=== PATIENT | female | born 1965 | race Caucasian/White ===

== ENCOUNTER 2022-09-27 13:01 | Outpatient (REF) | payer BC, SELFPAY ==
--- NOTE | ~2022-09-27 | XR_ITS ---
EXAMINATION: XR LUMBOSACRAL SPINE CLINICAL INFORMATION: Arthrodesis status COMPARISON: None available. TECHNIQUE: Two views of the lumbosacral spine. FINDINGS: There is a left-sided sudhir in the thoracic and upper lumbar spine ending at L3. There is posterior fusion hardware with rods and bilateral transpedicular screws from L3 to S1. There are intervertebral body disc interspaces at L3-L4 L4-L5 and L5-S1. No bony ankylosis is seen at these levels. There is mild curvature of the lower thoracic spine to the right. There is degenerative spondylosis disease at L1-L2 and L2-L3. No fracture or dislocation. XR/XR lumbar spine 2-3V IMPRESSION: Fusion hardware from L3 to S1.
== END 2022-09-27 13:02 | disposition home or self-care (01) ==
LOC: HO.HOSX 13:01
PROVIDERS: Visit Provider Neurological Surgery
DX: M53.3 Sacrococcygeal disorders, not elsewhere classified (principal); M54.9 Dorsalgia, unspecified; Z98.1 Arthrodesis status
CPT/HCPCS: 72100

== ENCOUNTER 2023-12-04 14:04 | Outpatient (AMB) | payer OTHER, SELFPAY ==
--- NOTE | 2023-12-04 14:12 | A.SPINEOV_ITS ---
Intake Visit Reasons: F/u after Pain management Intake Note: Ms. Cueto is here to f/u after pain management. Anesthesiologist Physician Required: No Allergies No Known Allergies Allergy (Verified 12/04/23 14:14) Assessment & Plan Assessment & Plan (1) Status post lumbar and lumbosacral fusion by anterior technique: Code(s): Z98.1 - Arthrodesis status Category: Surgical (2) Failed back syndrome: Code(s): M96.1 - Postlaminectomy syndrome, not elsewhere classified Category: Medical Plan Dear colleague, On 12/03/2023, I saw for follow-up Keiko Cueto. She is status post L3-S1 lumbar fusion posterior instrumentation in March 2022. She never reported any improvement in her back pain. She continues to suffer from severe back pain radiating down both legs with the left side is more affected than the right side. She is unable to walk long more than 150 ft. She can not stand for more than 5 minutes were sit for prolonged period of times. She has not been able to return to a job at [employer]. She underwent multiple injections, including an SI joint injection in his spinal cord stimulator trial with no significant effect. 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 A recent x-ray the to evaluate the SI joints show lucency around the bilateral S1 pedicle screw. On exam, she stands and walks in a flexed position and holds her left leg up due to pain. I would like to order a CT of the lumbar spine to assess for pseudoarthrosis although the patient is aware that the fact she did not respond at all due to the surgery, a revision surgery will most likely not make a difference in her symptomatology. I will schedule the CT for March, the 2 year thania from her surgery and will see her that same day in the office. She needs to apply for social security disability with a diagnosis of failed back syndrome. I spent 30 minutes in his consult to review imaging and to discuss plan of care. Oscar Muñoz MD, PhD Spine Fellowship Trained Neurosurgeon Director, [facility] Orders: Orders CT lumbar spine wo IV con Today M96.1 - Postlaminectomy syndrome, not elsewhere classified, Z98.1 - Arthrodesis status Coding Level of Care Code Est Pt Level 4 (36125) Diagnoses Status post lumbar and lumbosacral fusion by anterior technique Z98.1 Failed back syndrome M96.1
== END 2023-12-04 15:02 | disposition home or self-care (01) ==
PROVIDERS: PCP Family Medicine; Visit Provider Neurological Surgery
DX: Z98.1 Arthrodesis status (principal); M96.1 Postlaminectomy syndrome, not elsewhere classified
CPT/HCPCS: 99214

== ENCOUNTER → 2023-12-04 14:04 | Outpatient (BNVA) | payer OTHER, SELFPAY | PROVIDERS: PCP Family Medicine; Visit Provider Neurological Surgery ==

== ENCOUNTER 2024-04-07 12:58 | Outpatient (REF) | payer MEDICAID, SELFPAY ==
--- NOTE | ~2024-04-07 | CT_ITS ---
EXAMINATION: CT LUMBAR SPINE WITHOUT CONTRAST CLINICAL INFORMATION: Postlaminectomy syndrome, not elsewhere classified COMPARISON: Lumbar spine radiograph 09/27/2022 TECHNIQUE: Helical CT images were acquired through the lumbar spine without the use of intravenous contrast. Axial reconstructions were reviewed along with sagittal and coronal MPRs. This CT examination was performed using dose optimization techniques as appropriate, variously including the following: * Automated exposure control * Adjustment of mA and/or kV according to patient size (this includes techniques or standardized protocols for targeted exams where dose is matched to indication/reason for exam; i.e. extremities or head) Use of iterative reconstruction technique DLP: 1075 mGy-cm FINDINGS: Mild left convexity scoliosis of the lumbar spine. Sagittal alignment is maintained. No acute fracture. Stable and intact spinal fusion hardware including bipedicular L3-S1 screws and fusion rods with associated intervertebral disc spacers, and a left-sided upper lumbar/thoracic stabilization sudhir extending superiorly out of [id number]. The remaining intervertebral disc spaces are maintained. Spondylosis with osteophytosis along the thoracolumbar fusion sudhir/L3. L3-S1 lumbar spondylosis with subchondral sclerosis, osteophytosis and facet arthropathy. Moderate bilateral L5-S1 neural foraminal stenosis. The bony canal is well maintained. Bilateral sacroiliac joints are maintained. The paraspinal soft tissues are unremarkable. CT/CT lumbar spine wo IV con IMPRESSION: 1. Stable and intact spinal fusion hardware as described above. 2. Moderate multilevel lumbar spondylosis as described above. 3. No acute fracture or subluxation. Electronically signed by: Delphine Farley DO 04/07/2024 04:40 PM [facility]
== END 2024-04-07 12:59 | disposition home or self-care (01) ==
LOC: HO.CT 12:58
PROVIDERS: PCP Family Medicine; Visit Provider Neurological Surgery
DX: M96.1 Postlaminectomy syndrome, not elsewhere classified (principal); Z98.1 Arthrodesis status
CPT/HCPCS: 72131

== ENCOUNTER 2024-04-30 13:41 | Outpatient (AMB) | payer OTHER, SELFPAY ==
--- NOTE | 2024-04-30 14:32 | HO.SPINEOV ---
Intake Visit Reasons: ct follow up Intake Note: Ms. Cueto is here today to f/u on Ct results. Auto Camp Attendant Required: No Allergies No Known Allergies Allergy (Verified 12/04/23 14:14) Assessment & Plan Assessment & Plan (1) Status post lumbar and lumbosacral fusion by anterior technique: Code(s): Z98.1 - Arthrodesis status Category: Surgical (2) Failed back syndrome: Code(s): M96.1 - Postlaminectomy syndrome, not elsewhere classified Category: Medical Plan Dear colleague, On 04/30/2024, I saw for follow-up Keiko Cueto. As you know, she had a scoliosis correction with a Dickerson sudhir. She presented to me with a lumbar degenerative scoliosis for which I performed an L4-S1 lumbar fusion but unfortunately she did not respond to the surgery. She suffering from failed back syndrome. She continues to have severe low back pain and left hip groin and leg pain. She walks in a flexed position with a limp of her left leg. She can not walk for any significant length of time but I also can not sit for prolonged periods of times. She is definitely not able to lift anything more than 10 lb. Preoperatively, she already tried all forms of conservative treatment, including a spinal cord stimulator trial which was negative. A left SI joint injection provided no relief of the pain either. A CT scan of the lumbar spine shows intact hardware. There is no role for further surgery. She applied for disability which was denied to my surprise. She is totally disabled for work due to her spine pathology for which there is no therapeutic solution. She will visit me on a p.r.n. basis. I when he minutes in his consult to review imaging and to discussing her current clinical situation. Oscar Muñoz MD, PhD Spine Fellowship Trained Neurosurgeon Director, [facility] [place] [facility] Coding Level of Care Code Est Pt Level 3 (58248) Diagnoses Status post lumbar and lumbosacral fusion by anterior technique Z98.1 Failed back syndrome M96.1
--- OUTSIDE RECORDS SUMMARY | 2024-05-06 19:38 | XMS_ITS | Data Portability ---
Author Organization [facility] [employer], svmg_admin Address [address] [place] [id number] Care Team Providers Care Ecclesiastical Worker Name Role Phone KAT CHAU Referring Provider AMADOR GIL Primary Care Provider [phone] KAT CHAU Pain Management Assessment Encounter Date Assessment Date Assessment LastModified by Organization Details LastModified Time 12/18/2023 12/18/[address] Muñoz 12/03/23 for review. Not available 12/18/2023 14:29:55 Plan of Treatment Reminders Order Date Submit Date Provider Last Modified By Organization Details Last Modified Time Details Appointments None recorded. Lab None recorded. Referral None recorded. Procedures epidural steroid injection, caudal (PROC) 2023 024 [email or web address] Not available 4 09:23:28 Surgeries None recorded. Imaging None recorded. Medication Orders pregabalin 75 mg capsule 2023 024 [id number], [address], [place], [id number], 4 14:00:22 tramadol 50 mg tablet 2023 024 [email or web address] [id number], [address], [place], [phone], 4 13:58:56 Patient TargetsNo targets recorded. Patient Instructions Encounter Date Encounter Id Patient Instructions Last Modified By Organization Details Last Modified Time 07/23/2023 [id number] A healthy lifestyle: care instructions Not available 07/23/2023 17:07:28 back care and preventing injuries: care instructions [email or web address] Not available 07/23/2023 17:07:28 getting back to normal after low back pain: care instructions [email or web address] Not available 07/23/2023 17:07:28 learning about relief for back pain [email or web address] Not available 07/23/2023 17:07:28 caudal lanny information [email or web address] Not available 07/23/2023 17:07:28 09/24/2023 [id number] A healthy lifestyle: care instructions Not available 09/24/2023 14:08:40 back care and preventing injuries: care instructions [email or web address] Not available 09/24/2023 14:08:40 getting back to normal after low back pain: care instructions [email or web address] Not available 09/24/2023 14:08:40 learning about relief for back pain [email or web address] Not available 09/24/2023 14:08:40 caudal lanny information [email or web address] Not available 09/24/2023 14:08:40 10/11/2023 [id number] A healthy lifestyle: care instructions [email or web address] Not available 10/11/2023 14:02:16 back care and preventing injuries: care instructions [email or web address] Not available 10/11/2023 14:02:16 getting back to normal after low back pain: care instructions [email or web address] Not available 10/11/2023 14:02:16 learning about relief for back pain Not available 10/11/2023 14:02:16 caudal lanny information [email or web address] Not available 10/11/2023 14:02:16 11/13/2023 [id number] A healthy lifestyle: care instructions Not available 11/13/2023 13:24:53 back care and preventing injuries: care instructions [email or web address] Not available 11/13/2023 13:24:54 getting back to normal after low back pain: care instructions [email or web address] Not available 11/13/2023 13:24:54 learning about relief for back pain [email or web address] Not available 11/13/2023 13:24:53 caudal lanny information [email or web address] Not available 11/13/2023 13:24:53 12/18/2023 [id number] A healthy lifestyle: care instructions Not available 12/18/2023 14:30:59 back care and preventing injuries: care instructions [email or web address] Not available 12/18/2023 14:30:59 getting back to normal after low back pain: care instructions [email or web address] Not available 12/18/2023 14:30:59 learning about relief for back pain [email or web address] Not available 12/18/2023 14:30:59 caudal lanny information [email or web address] Not available 12/18/2023 14:30:59 Reason for Referral None Reported. Results Created Date Observation Date Name Description Value Unit Range Abnormal Flag Note LastModifiedBy Organization Detail LastModifiedTime 09/24/19 24 09/24/2023 URINE abnormal status negative Not Available [facility] [address] [place] [address], [address], 09/28/2023 09:48:51 09/24/19 24 09/24/2023 URINE abnormal status positive Not Available [facility] [address] [place] [address], [address], 09/28/2023 09:48:51 09/24/19 24 09/28/2023 RESUL TS opiates class Negati ve NG/mL 300 negative Not Available [facility] [address] [place] [address], [address], 09/28/2023 09:48:50 09/24/19 24 09/28/2023 RESUL TS oxycodone Negati ve NG/mL 100 negative Not Available [facility] [address] [place] [address], [address], 09/28/2023 09:48:50 09/24/19 24 09/28/2023 RESUL TS methadone Negati ve NG/mL 300 negative Not Available [facility] [address] [place] [address], [address], 09/28/2023 09:48:50 09/24/19 24 09/28/2023 RESUL TS benzodiazepi matt class Negati ve NG/mL 200 negative Not Available [facility] [address] [place] [address], [address], 09/28/2023 09:48:50 09/24/19 24 09/28/2023 RESUL TS cocaine metabolite (BE) Negati ve NG/mL 150 negative Not Available [facility] [address] [place] [address], [address], 09/28/2023 09:48:50 09/24/19 24 09/28/2023 RESUL TS cthc Negati ve NG/mL 50 negative Not Available [facility] [address] [place] [address], [address], 09/28/2023 09:48:50 09/24/19 24 09/28/2023 RESUL TS amphetamines /stimulants class Negati ve NG/mL 500 negative Not Available [facility] [address] [place] [address], [address], 09/28/2023 09:48:50 09/24/19 24 09/28/2023 RESUL TS barbiturates class Negati ve NG/mL 200 negative Not Available [facility] [address] [place] [address], [address], 09/28/2023 09:48:50 09/24/19 24 09/28/2023 RESUL TS pregabalin 66752 NG/mL 500 positive Not Available [facility] [address] [place] [address], [address], 09/28/2023 09:48:50 09/24/19 24 09/28/2023 RESUL TS nicotine metabolite <100 NG/mL 100 negative Not Available [facility] [address] [place] [address], [address], 09/28/2023 09:48:50 09/24/19 24 09/28/2023 RESUL TS fluoxetine 1558 NG/mL 50 positive Not Available [facility] [address] [place] [address], [address], 09/28/2023 09:48:50 09/24/19 24 09/28/2023 RESUL TS creatinine 39.32 mg/dL > 20 mg/dL normal Not Available [facility] [address] [place] [address], [address], 09/28/2023 09:48:50 09/24/19 24 09/28/2023 RESUL TS creatinine 39.32 mg/dL > 20 mg/dL normal Not Available [facility] [address] [place] [address], [address], 09/28/2023 09:48:50 09/24/19 24 09/28/2023 RESUL TS creatinine 39.32 mg/dL > 20 mg/dL normal Not Available [facility] [address] [place] [address], [address], 09/28/2023 09:48:50 09/24/19 24 09/28/2023 RESUL TS oxidants ug/mL < 200 ug/mL normal NOT DETEC AMMY NOT DETEC AMMY NOT DETEC AMMY Not Available [facility] [address] [place] [address], [address], 09/28/2023 09:48:50 09/24/19 24 09/28/2023 RESUL TS pH 6.35 4.50-9 .50 normal Not Available [facility] [address] [place] [address], [address], 09/28/2023 09:48:50 09/24/19 24 09/28/2023 RESUL TS pH 6.35 4.50-9 .50 normal Not Available [facility] [address] [place] [address], [address], 09/28/2023 09:48:50 09/24/19 24 09/28/2023 RESUL TS pH 6.35 4.50-9 .50 normal Not Available [facility] [address] [place] [address], [address], 09/28/2023 09:48:50 09/24/19 24 09/28/2023 RESUL TS specific gravity 1.004 1.003- 1.050 normal Not Available [facility] [address] [place] [address], [address], 09/28/2023 09:48:50 09/24/19 24 09/28/2023 RESUL TS specific gravity 1.004 1.003- 1.050 normal Not Available [facility] [address] , [place], [address], 09/28/2023 09:48:50 09/24/19 24 09/28/2023 RESUL TS specific gravity 1.004 1.003- 1.050 normal Not Available [facility] [address], [place], [address], 09/28/2023 09:48:50 Result Notes None recorded. Problems Name Problem SNOMED Code Status Onset Date Resolution Date Notes Provider Name and Address Organization Details Recorded Time Low back pain 433925613 Active 023 Pippa teran [facility] 05/03/2023 08:32:06 Notes:Some problems listed i n Document: #[id number] could not be added to this patient's chart. Please review this document and add these problems to the patient's chart manually as needed. Problem Notes None recorded. Procedures Surgical History Date Name Laterality Status Provider Name and Address Organization Details Recorded Time 2023 Caudal Epidural Steroid Injection completed Kat Chau MD [address] [place], [address], [facility] 4 15:44:47 2022 Special Procedure completed Kat Chau MD [address] [place] [address], [phone], [facility] 3 11:26:42 2022 Lumbar Transforaminal Epidural completed Kat Chau MD [address] [place] [address], [phone], [facility] 3 12:36:04 2022 Sacroiliac Joint Injection completed Nori Chau MD [address] [place] [address], [phone], [facility] 3 11:09:46 2021 lumbar spinal fusion completed Pippa Navas [facility] 3 08:33:25 2020 colonoscopy completed Lucas Gutierrez [facility] 3 14:51:06 2020 esophagogastroduodenoscopy completed Garthjordi Gutierrez [facility] 3 14:51:45 Spine Surgery completed Lucas Gutierrez [facility] 3 14:53:00 Tonsillectomy completed Lucas Gutierrez [facility] 3 14:53:12 Imaging Results None recorded. Procedure Notes None recorded. Medical Equipment None Reported. Allergies Allergen ID Allergen Name Allergen Category Reaction Reaction Severity Criticality Documentation Date Start Date Code Code System Note Provider Name and Address Organization Details Recorded Time [id number] chlorthal idone medicatio n other Not available Not available 09/27/2022 5069 RxNorm Elect rolyt e Distu rbanc e Lucas Gutierrez [facility] 3 15:00:35 Medications Name Sig Start Date Stop Date Status Note LastModified by Organization Details LastModified Time Prescript ion - New active Zynex- Prescrip tion & Letter of Medical Necessit y 01/16/20 24 Not Available Not Available Not Available methocarb humberto 500 mg tablet 10/10 completed Not Available Not Available Not Available prednison e 10 mg tablet 07/23 completed Not Available Not Available Not Available nicotine 14 mg/24 hr daily transderm al patch APPLY 1 PATCH TOPICALL Y TO THE SKIN 1 TIME EACH DAY AT THE SAME TIME 11/12 completed Not Available Not Available Not Available meloxicam 15 mg tablet 1 tab at bed time 12/17 completed Not Available Not Available Not Available omeprazol e 40 mg capsule,d elayed release Take 1 capsule every day by oral route as directed . active Not Available Not Available No t Available tramadol 50 mg tablet TAKE 1 TABLET BY MOUTH EVERY 12 HOURS 12/17 completed Not Available Not Available Not Available hydromorp pearl 2 mg tablet TAKE 1 TO 2 TABLETS BY MOUTH EVERY 4 HOURS NEEDED FOR PAIN 11/02 completed Not Available Not Available Not Available cephalexi n 500 mg capsule Take 1 capsule twice a day by oral route as directed for 10 days. 05/03 completed Not Available Not Available Not Available lisinopri l 10 mg tablet Take 1 tablet every day by oral route. active Not Available Not Available No t Available fluoxetin e 10 mg capsule TAKE 1 CAPSULE BY MOUTH EVERY MORNING FOR 7 DAYS. THEN INCREASE TO TAKE 2 CAPSULE BY MOUTH EVERY MORNING 11/12 completed Not Available Not Available Not Available gabapenti n 100 mg capsule TAKE 1 CAPSULE BY MOUTH EVERY NIGHT AT BEDTIME. INCREASE TO 2 TIMES DAILY IF NO SIDE EFFECTS 11/02 completed Not Available Not Available Not Available ibuprofen 600 mg tablet Take 1 tablet twice a day by oral route as needed. 11/02 completed Not Available Not Available Not Available fluoxetin e 20 mg capsule 3 tab daily active Not Available Not Available No t Available amoxicill in 875 mg-potass ium clavulana te 125 mg tablet TAKE 1 TABLET BY MOUTH TWICE DAILY FOR 10 DAYS 11/02 completed Not Available Not Available Not Available bupropion HCl XL 150 mg 24 hr tablet, extended release active Not Available Not Available Not Available Spiriva with HandiH[employer] r 18 mcg and inhalatio n capsules Place two puffs (1 capsule total) into inhaler and inhale 1 (one) time each day 11/12 completed Not Available Not Available Not Available duloxetin e 20 mg capsule,d elayed release 07/23 completed Not Available Not Available Not Available duloxetin e 30 mg capsule,d elayed release 07/23 completed Not Available Not Available Not Available duloxetin e 60 mg capsule,d elayed release Take 1 capsule every day by oral route. 07/23 completed Not Available Not Available Not Available pregabali n 75 mg capsule TAKE 1 CAPSULE BY MOUTH TWICE DAILY 10/10 completed Not Available Not Available Not Available Breztri Aerospher e 160 mcg-9mcg- 4.8mcg/ac tuation HFA aerosol inhaler active Not Available Not Available Not Available Vitals Date Recorded Body height Body mass index (BMI) Body weight Heart rate Oxygen saturation Oxygen saturation in Arterial blood by Pulse oximetry Systolic blood pressure Diastolic blood pressure Provider Name and Address Organization Details Last Updated DateTime 167.64 cm 33.9 kg/m2 42667.4 g 89 /min 96 % 96 % 126 mm[Hg] 76 mm[Hg] Melita Rivera [facility] 4 16:26:28 Date Recorded Body height Body mass index (BMI) Body weight Oxygen saturation Oxygen saturation in Arterial blood by Pulse oximetry Heart rate Systolic blood pressure Diastolic blood pressure Provider Name and Address Organization Details Last Updated DateTime 4 167.64 cm 33.9 kg/m2 98775.4 g 98 % 98 % 86 /min 126 mm[Hg] 75 mm[Hg] Roseanne Real [facility]. 4 13:40:27 Date Recorded Body height Oxygen saturation Oxygen saturation in Arterial blood by Pulse oximetry Heart rate Systolic blood pressure Diastolic blood pressure Provider Name and Address Organization Details Last Updated DateTime 4 167.64 cm 96 % 96 % 83 /min 147 mm[Hg] 93 mm[Hg] Jovana Copiah [facility]. 4 13:01:03 Date Recorded Body height Body mass index (BMI) Body weight Oxygen saturation Oxygen saturation in Arterial blood by Pulse oximetry Respiratory rate Heart rate Systolic blood pressure Diastolic blood pressure Provider Name and Address Organization Details Last Updated DateTime 4 167.64 cm 33.9 kg/m2 78852.4 g 96 % 96 % 16 /min 83 /min 128 mm[Hg] 80 mm[Hg] Clementina Ayers [facility]. 4 12:30:20 Date Recorded Body height Body mass index (BMI) Body weight Heart rate Oxygen saturation Oxygen saturation in Arterial blood by Pulse oximetry Systolic blood pressure Diastolic blood pressure Provider Name and Address Organization Details Last Updated DateTime 4 167.64 cm 33.9 kg/m2 16451.4 g 89 /min 95 % 95 % 142 mm[Hg] 84 mm[Hg] Roseanne Real [facility] 4 14:03:04 Social History Question Answer Notes LastModified by Organizat ion Details LastModified Time Tobacco Smoking Status Former Smoker Lucas teran [facility] 09/27/2022 14:53:53 Do You Have An Advance Directive? No [email or web address] Information not available 05/03/2023 What Is Your Level Of Alcohol Consumption? Occasional Information not available 11/02/2022 Are You Blind Or Do You Have Difficulty Seeing? No [email or web address] Information not available 05/03/2023 What Is Your Level Of Caffeine Consumption? Occasional Information not available 11/02/2022 Are You Currently Employed? No [email or web address] Information not available 05/03/2023 Are You Deaf Or Do You Have Serious Difficulty Hearing? No [email or web address] Information not available 05/03/2023 What Type Of Diet Are You Following? REGULAR Information not available 11/02/2022 Do You Or Have You Ever Used E-cigarettes Or Vape? Never Used Electronic Cigarettes Information not available 11/02/2022 When Did You Quit Smoking? 16+yearssincel prieto 1979 [email or web address] Information not available 09/27/2022 Urinary Incontinence Assessment Performed? No [email or web address] Information not available 05/03/2023 What Was The Date Of Your Most Recent Tobacco Screening? 12/18/2023 [email or web address] Information not available 12/18/2023 Have You Ever Been Counseled For Unhealthy Alcohol Use? No Information not available 12/11/2022 What Is Your Relationship Status? Single Information not available 11/02/2022 Do You Feel Stressed (tense, Restless, Nervous, Or Anxious, Or Unable To Sleep At Night)? [id number] Information not available 11/02/2022 Do You Use Any Illicit Or Recreational Drugs? No Information not available 12/11/2022 Has Tobacco Cessation Counseling Been Provided? No [email or web address] Information not available 05/03/2023 Do You Or Have You Ever Used Any Other Forms Of Tobacco Or Nicotine? Yes Information not available 11/02/2022 Sex: Unknown Functional Status Question Answer Note LastModified by Organizat ion Details LastModified Time Are you able to care for yourself? Yes [email or web address] Information not available 05/03/2023 What is your exercise level? Occasional Information not available 11/02/2022 Mental Status None recorded. Family History Relationship Description Onset Age of this Age Resolved Age Notes LastModified by Organization Details LastModified Time Father Depressive disorder [email or web address] Not available 07/2022 14:54:53 Father Disorder of lung [email or web address] Not available 07/2022 14:55:46 Sister Depressive disorder [email or web address] Not available 07/2022 14:54:53 Sister Anxiety [email or web address] Not availab le 09/27/2022 14:56:02 Son Inflammatory bowel disease [email or web address] Not available 07/2022 14:55:10 Son Steatosis of liver [email or web address] Not available 07/2022 14:56:49 Mother Anxiety [email or web address] Not availab le 09/27/2022 14:56:02 Medical History Condition Response AFib (Atrial Fibrillation) N Eye Problems (Glaucoma, Retinopathy, Mac ular Degeneration) N High Blood Pressure (Hypertension) Y Back/Neck Pain Y Depression N Kidney Disease/Stones N High Cholesterol (Hyperlipidemia) N Headaches/Migraines N Hearing Loss N Heart Attack (Myocardial Infarction) N Heart Disease/Valve Disease N Cancer N Heart Rhythm Problem (Palpitations) N STI's N Stroke/TIA N Prior Blood Transfusion N Aortic Aneurysm N Bleeding Problems N Arthritis Rheumatoid Y Autoimmune Disease N Diabetes (Insulin Dependent) N Gallbladder Disease/Stones N Anxiety N Anesthetic Complication N ADD/ADHD N Gastrointestinal Disease (IBS, Gastritis , Ulcer, Acid Reflux) Y Blood Clot (Deep Vein Thrombosis) N Anemia N Neuropathy (Numbness, Pain, Tingling) Y Diabetes (Non-Insulin Dependent) N Bladder Problems N Osteopenia/Osteoporosis N Overweight/Obesity N Spine Disease (Herniated Disc, Scoliosis , Stenosis) Y Asthma N COPD (Chronic Obstructive Pulmonary Dise ase) Y Other Disease(s): N No Past Medical Problems Reported N CAD (Coronary Artery Disease) N Thyroid Disease/Disorder N Gynecological HistoryNo gynecological history recorded. Obstetrics History GPAL:G 0 P 0 0 0 0 Past Encounters Encounter ID Performer Location Encounter Start Date Encounter Closed Date Diagnosis/Indication Diagnosis SNOMED-CT Code Diagnosis ICD10 Code [id number] Kat Chau MD [facility] [address] [place] [address],[address] [address] 11/02/2022 10:10:01 11/02/2022 12:53:29 Overweight 388795711 E66.3 Lumbar post-laminectomy syndrome 248475062 M96.1 Low back pain 627372638 M54.50 Pain in le ft sacroiliac joint 7382997788 3109667 M53.3 Lumbar radiculopathy 128 758195 M54.16 [id number] Kat Chau MD [facility] [address] [place] [address] [place] [phone] 11/08/2022 10:09:08 11/08/2022 12:01:28 Overweight 584744823 E66.3 Lumbosacra l spondylosis without myelopathy 00686221 M47.827 [id number] Kat Chau MD [facility] [address] [place], [place] [address]i te [address] [place] [id number] 6 12/11/2022 10:36:03 12/11/2022 11:45:16 Overweight 997383559 E66.3 Lumbar post-laminectomy syndrome 208770836 M96.1 Pain in le ft sacroiliac joint 5107178905 7341974 M53.3 Low back pain 323597999 M54.50 Lumbar radiculopathy 128 864464 M54.16 [id number] Kat Chau MD [facility] [address] [place], [place] [address] te [address] [place] [phone] 6 12/27/2022 10:53:33 12/27/2022 12:45:30 Lumbar radiculopathy 955480432 M54.16 Lumbar post-laminectomy syndrome 495461824 M96.1 [id number] Kat Chau MD [facility] [address] [place], [place] [address] te [address] [place] [id number] 6 01/25/2023 11:07:29 01/25/2023 12:58:11 Overweight 680901406 E66.3 Lumbar post-laminectomy syndrome 322206601 M96.1 Low back pain 609720832 M54.50 Lumbar radiculopathy 128 132331 M54.16 [id number] Kat Chau MD [facility] [address] [place], [place] [address] te [address] [place] [id number] 6 03/05/2023 08:28:36 03/05/2023 14:25:57 Lumbar post-laminectomy syndrome 807941347 M96.1 Low back pain 142622086 M54.50 Scoliosis of thoracic spine 003769341 M41.34 [id number] Pippa Navas [facility] [address] [place], [place] [address] te [address] [place] [id number] 6 05/03/2023 08:07:57 05/03/2023 09:13:25 Lumbar post-laminectomy syndrome 207814425 M96.1 Lumbar radiculopathy 128 681414 M54.16 Low back pain 086710521 M54.50 [id number] Kat Chau MD [facility] [address] [place] [address] [place] [id number] 6 06/12/2023 10:16:00 06/12/2023 11:10:43 Overweight 993150611 E66.3 Lumbar radiculopathy 128 201933 M54.16 Low back pain 051502030 M54.50 Lumbar post-laminectomy syndrome 054839635 M96.1 [id number] Kat Chau MD [facility] [address] [place], [place] [address] te [address] [place] [id number] 6 06/15/2023 14:05:37 06/15/2023 16:47:10 Lumbar radiculopathy 735586596 M54.16 Lumbar post-laminectomy syndrome 686034951 M96.1 [id number] Kat Chau MD [facility] [address] [place], [place] [address] te [address] [place] [id number] 6 07/23/2023 14:50:54 07/23/2023 17:17:19 Overweight 519205366 E66.3 Lumbar post-laminectomy syndrome 875824847 M96.1 Lumbar radiculopathy 128 162973 M54.16 Low back pain 081014524 M54.50 [id number] Kat Chau MD [facility] [address] [place], [place] [address] te [address] [place] [id number] 6 09/24/2023 13:26:40 09/24/2023 14:18:49 Overweight 906617915 E66.3 Lumbar post-laminectomy syndrome 054491161 M96.1 Lumbar radiculopathy 128 250841 M54.16 Low back pain 699137056 M54.50 Long-term current use of opiate analgesic drug 4136548014 11123 Z79.480 [id number] [facility] [address] [place] [id number] 10/11/2023 12:48:15 10/11/2023 14:33:12 Lumbar radiculopathy 103848890 M54.16 Lumbar post-laminectomy syndrome 452462425 M96.1 Overweight 795774481 E66 .3 Low back pain 590933421 M54.50 Long-term current use of opiate analgesic drug 8612098397 94432 Z79.393 [id number] [facility] [address] [place] [id number] 6 11/13/2023 11:46:59 11/13/2023 13:31:56 Lumbar post-laminectomy syndrome 435814079 M96.1 Long-term current use of opiate analgesic drug 7613933650 96709 Z79.891 Lumbar radiculopathy 128 846349 M54.16 Overweight 412344051 E66 .3 Low back pain 679995815 M54.50 [id number] [facility] [address] [place] [id number] 6 12/18/2023 13:21:47 12/18/2023 14:42:09 Lumbar post-laminectomy syndrome 610960775 M96.1 Long-term current use of opiate analgesic drug 3529461494 80184 Z79.891 Lumbar radiculopathy 128 603111 M54.16 Overweight 154147136 E66 .3 Low back pain 341134141 M54.50 Health Concerns Section Related Observation LastModified by Organization Detai ls LastModified Time None Recorded Concern Status LastModified by Organization Details LastModified Time None Recorded Advance Directives Directive N: Payers Encounter Date Sequence Insurance Name Policy Number Policy Reeves Covered Member ID Reeves Member ID Guarantor Name 07/23/2023 1 [facility] (O) Keiko Cueto [id number] Keiko Cueto 09/24/2023 1 [facility] (O) Keiko Cueto [phone] Keiko Cueto 10/11/2023 1 [facility] ([facility]) Keiko Cueto [phone] Keiko Cueto 11/13/2023 1 [facility] ([facility]) Keiko Cueto [phone] Keiko Cueto 12/18/2023 1 [facility] ([facility]) Keiko Cueto [phone] Keiko Cueto Notes Date Note Type Note Provider Name and Address Organization Details Recorded Time 07/23/2023 text/html 58 y/o F with PL PS s/p [facility] trial. She states that after her trial she some relief although the relief did not significant change the amount of activity she was able to do. At this time she continues to have pain in both legs, Left > than right. Describes pain as a constant ache with tingling and numbness to left groin area. Has done PT for 1 month straight ,but states was not effective. At this time she states that her overall level of pain is a 6/10. She endorses weakness to the left lower extremity. Kat Chau MD [address] [place] [address], [phone], [facility]. 07/23/2023 17:07:32 09/24/2023 text/html 58 y/o F with PL PS s/p [facility] trial, multiple injections with minimal relief of her pain. She states that after her trial she some relief although the relief did not significant change the amount of activity she was able to do. SHe had little relief with her injections as well. At this time, she continues to complain of sharp pain that extends from her L spine into the lower extremities, worse on the left side. She states that her overall level of pain varies from a 3-7/10. Kat Chau MD [address] [place] [address], [phone], [facility] 09/24/2023 14:08:44 10/11/2023 text/html 58 y/o F with PL PS s/p [facility] trial, multiple injections with minimal relief of her pain. She states that after her trial she some relief although the relief did not significant change the amount of activity she was able to do. She has stopped her lyrica after the last visit and she states that she has not been able to discern an increase in her pain. She does, however, continues to have pain in the low back with extension into her lower extremities. She states that this pain is limiting her ability to remain functional. Her overall level of pain is a 7/10. Kat Chau MD [address] [place] [address], [phone], [facility]. 10/11/2023 14:02:21 11/13/2023 text/html 58 y/o F with PL PS s/p [facility] trial, multiple injections with minimal relief of her pain. She states that after her trial she some relief although the relief did not significant change the amount of activity she was able to do. She was trailed tramadol 50 BID without any relief. She states that this pain is limiting her ability to remain functional. Her overall level of pain is a 7/10. She has continued pain into the lower extremities and is scheduled to see Dr. Muñoz. Kat Chau MD [address] [place] [address], [phone], [facility] 11/13/2023 13:24:57 12/18/2023 text/html 58 y/o F with PL PS s/p [facility] trial, multiple injections with minimal relief of her pain. She states that after her trial she some relief although the relief did not significant change the amount of activity she was able to do. She was trailed tramadol 50 BID without any relief. She states that this pain is limiting her ability to remain functional. Her overall level of pain is a 7/10. She has continued pain into the lower extremities. She has seen Dr. Muñoz who evaluated her and has ordered a CT of her L spine. Kat Chau MD [address] [place] [address], [phone], [facility] 12/18/2023 14:31:04 OBGyn Episode No OBEpisode recorded.
== END 2024-04-30 14:52 | disposition home or self-care (01) ==
PROVIDERS: PCP Family Medicine; Visit Provider Neurological Surgery
DX: Z98.1 Arthrodesis status (principal); M96.1 Postlaminectomy syndrome, not elsewhere classified
CPT/HCPCS: 99213